=== PATIENT | male | born 1975 | race Hispanic/Latino ===

== ENCOUNTER 2018-06-05 14:39 | Emergency (ER) | payer BC ==
[2018-06-05] MEDS ORDERED: NA CHLORIDE 0.9% 1,000 ML ONE ×2 (15:12→16:12)
[2018-06-05 15:35] LABS: Absolute Lymphocytes (CBC) 1.7 K/uL (0.7-4.9); Absolute Monocytes 0.3 K/uL (0.1-1.3); Absolute Neutrophil 7.3 K/uL (1.8-8.0); Basophils % 0.3 % (0-1.3); Eosinophils % 0.7 % (0-4.4); Hematocrit 44.8 % (39.6-49.0); Lymphocytes % 18.4 % (15.3-44.8); MCH 28.5 pg (27.0-35.0); MCV 86.5 fL (80-100); MPV 10.9 fL (7.6-11.3); Monocytes % 2.7 % (3.3-12.3); RBC Red Blood Cell Count 5.18 M/uL (4.33-5.43)
[2018-06-05 15:56] LABS: Albumin 3.2 g/dL (3.4-5.0); Bilirubin Direct 0.1 mg/dL (0-0.2); Bilirubin Total 0.5 mg/dL (0.2-1.0); Magnesium 1.8 mg/dL (1.8-2.4); Potassium 4.1 mmol/L (3.5-5.1); Protein, Total 7.2 g/dL (6.4-8.2)
[2018-06-05] MEDS ORDERED: INSULIN -REGULAR HUMAN 50 UNIT/0.5 ML ML ONE ×2 (16:11→18:38)
[2018-06-05 18:37] LABS: Urine Blood NEGATIVE (NEG); Urine Glucose 3+ (NEG); Urine Protein TRACE (NEG); Urine Specific Gravity 1.015 (1.005-1.030); Urine pH 5.5 (5.0-7.0)
--- NOTE | 2018-06-05 19:33 | EDPHYS ---
Physician Documentation [facility] Name: Jasen Alegria Age: 42 yrs Sex: Male : 1975 Arrival Date: 06/05/2018 Time: 14:42 Bed 23 Private MD: ED Physician Arsh Avilez HPI: 06/05 15:04 This 42 yrs old Male presents to ER via Wheelchair with complaints of Heat Exposure. snw 15:04 pt had visual disturbance, weakness, near syncope while working in the heat, co-workers snw placed him in "the rig" and then he "needed some air" so went to get up and had to be assisted. Now pt returning to normal vision, normal strength, normal feeling. Onset: The symptoms/episode began/occurred suddenly, today. Severity of symptoms: At their worst the symptoms were incapacitating. The patient has not experienced similar symptoms in the past. It is unknown whether or not the patient has recently seen a physician. pt told in the past he was diabetic but takes no meds. Historical: - Allergies: 14:56 No Known Allergies; tw2 - Home Meds: 14:56 None [Active]; tw2 - PMHx: 14:56 Diabetes - NIDDM; tw2 - PSHx: 14:56 one testical removal; tw2 - Immunization history:: Adult Immunizations up to date. - Social history:: Smoking status: Patient/guardian denies using tobacco. - Ebola Screening: : Patient denies travel to an Ebola-affected area in the 21 days before illness onset. ROS: 15:01 ENT: Negative for injury, pain, and discharge, Neck: Negative for injury, pain, and snw swelling. 15:01 Cardiovascular: Negative for chest pain, palpitations, and edema, Respiratory: Negative for shortness of breath, cough, wheezing, and pleuritic chest pain, Abdomen/GI: Negative for abdominal pain, nausea, vomiting, diarrhea, and constipation, Back: Negative for injury and pain, : Negative for injury, bleeding, discharge, and swelling, MS/Extremity: Negative for injury and deformity. 15:01 Constitutional: Positive for body aches, fatigue, malaise. 15:01 Eyes: Positive for visual disturbance. 15:01 Skin: Positive for diaphoresis. 15:01 Neuro: Positive for dizziness, near syncope, visual changes, weakness. Exam: 15:01 Constitutional: This is a well developed, well nourished patient who is awake, alert, snw and in no acute distress. Head/Face: Normocephalic, atraumatic. Eyes: Pupils equal round and reactive to light, extra-ocular motions intact. Lids and lashes normal. Conjunctiva and sclera are non-icteric and not injected. Cornea within normal limits. Periorbital areas with no swelling, redness, or edema. ENT: Nares patent. No nasal discharge, no septal abnormalities noted. Tympanic membranes are normal and external auditory canals are clear. Oropharynx with no redness, swelling, or masses, exudates, or evidence of obstruction, uvula midline. Mucous membranes moist. Neck: Trachea midline, no thyromegaly or masses palpated, and no cervical lymphadenopathy. Supple, full range of motion without nuchal rigidity, or vertebral point tenderness. No Meningismus. Chest/axilla: Normal chest wall appearance and motion. Nontender with no deformity. No lesions are appreciated. 15:01 Respiratory: Lungs have equal breath sounds bilaterally, clear to auscultation and percussion. No rales, rhonchi or wheezes noted. No increased work of breathing, no retractions or nasal flaring. Abdomen/GI: Soft, non-tender, with normal bowel sounds. No distension or tympany. No guarding or rebound. No evidence of tenderness throughout. Back: No spinal tenderness. No costovertebral tenderness. Full range of motion. Skin: Warm, dry with normal turgor. Normal color with no rashes, no lesions, and no evidence of cellulitis. MS/ Extremity: Pulses equal, no cyanosis. Neurovascular intact. Full, normal range of motion. Neuro: Awake and alert, GCS 15, oriented to person, place, time, and situation. Cranial nerves II-XII grossly intact. Motor strength 5/5 in all extremities. Sensory grossly intact. Cerebellar exam normal. Normal gait. 15:01 Cardiovascular: Rate: tachycardic, Rhythm: regular, Heart sounds: normal, JVD: is not appreciated. Vital Signs: 14:47 BP 138 / 89; Pulse 113; Resp 13; Temp 99.0(O); Pulse Ox 95% on R/A; tw2 14:54 Weight 136.08 kg (R); Height 5 ft. 5 in. (165.10 cm); Pain 0/10; tw2 15:38 BP 138 / 89; Pulse 110; Resp 17; Pulse Ox 95% on 2 lpm NC; tw2 16:22 BP 147 / 89; Pulse 107; Resp 19; Pulse Ox 98% on 2 lpm NC; tw2 17:12 BP 149 / 87; Pulse 116; Resp 19; Pulse Ox 96% on R/A; tw2 18:00 BP 137 / 74; Pulse 113; Resp 17; Pulse Ox 95% on R/A; tw2 19:15 BP 118 / 94; Pulse 103; Resp 17; Pulse Ox 96% on R/A; tw2 19:40 BP 121 / 65; Pulse 99; Resp 20; Pulse Ox 96% on R/A; Pain 0/10; lp1 14:54 Body Mass Index 49.92 (136.08 kg, 165.10 cm) tw2 MDM: 14:48 Patient medically screened. snw 19:33 Data reviewed: vital signs, nurses notes. Data interpreted: Pulse oximetry: on room air snw is 96 %. Interpretation: acceptable. Counseling: I had a detailed discussion with the patient and/or guardian regarding: the historical points, exam findings, and any diagnostic results supporting the discharge/admit diagnosis, the presence of at least one elevated blood pressure reading (>120/80) during this emergency department visit, lab results, the need for outpatient follow up, to return to the emergency department if symptoms worsen or persist or if there are any questions or concerns that arise at home. Special discussion: Based on the history and exam findings, there is no indication for further emergent testing or inpatient evaluation. I discussed with the patient/guardian the need to see the primary care provider for further evaluation of the symptoms. 06/05 15:01 Order name: Basic Metabolic Panel; Complete Time: 15:59 snw 06/05 15:01 Order name: CBC with Diff; Complete Time: 15:49 snw 06/05 15:01 Order name: CPK; Complete Time: 15:59 snw 06/05 15:01 Order name: LFT's; Complete Time: 15:59 snw 06/05 15:01 Order name: Magnesium; Complete Time: 15:59 snw 06/05 15:01 Order name: Troponin (emerg Dept Use Only); Complete Time: 15:59 snw 06/05 16:14 Order name: Glucose, Ancillary Testing; Complete Time: 16:22 EDMS 06/05 16:43 Order name: Glucose, Ancillary Testing; Complete Time: 17:01 EDMS 06/05 17:31 Order name: Urine Dipstick--Ancillary (enter results); Complete Time: 18:40 eb 06/05 18:43 Order name: Glucose, Ancillary Testing; Complete Time: 18:51 EDMS 06/05 15:01 Order name: EKG; Complete Time: 15:01 snw 06/05 15:01 Order name: Cardiac monitoring; Complete Time: 15:02 snw 06/05 15:01 Order name: EKG - Nurse/Tech; Complete Time: 15:02 snw 06/05 15:01 Order name: IV Saline Lock; Complete Time: 15:02 snw 06/05 15:01 Order name: Labs collected and sent; Complete Time: 15:19 snw 06/05 15:01 Order name: O2 Per Protocol; Complete Time: 15:02 snw 06/05 15:01 Order name: O2 Sat Monitoring; Complete Time: 15:02 snw 06/05 15:01 Order name: Urine Dipstick-Ancillary (obtain specimen); Complete Time: 16:22 snw 06/05 18:16 Order name: VS Recheck; Complete Time: 18:17 snw Administered Medications: 15:23 Drug: NS 0.9% 1000 ml Route: IV; Rate: 1 bolus; Site: right antecubital; mg2 16:10 Drug: Insulin Regular Human 5 units {Co-Signature: mg2 (David Rich RN).} Route: tw2 IVP; Site: right antecubital; 16:42 Follow up: Response: No adverse reaction; Blood sugar is lowered tw2 16:11 Drug: NS 0.9% 1000 ml Route: IV; Rate: 1 bolus; Site: right antecubital; tw2 18:00 Follow up: Response: No adverse reaction; IV Status: Completed infusion; IV Intake: tw2 1000ml 18:35 Drug: Insulin Regular Human 5 units {Co-Signature: mg2 (David Rich RN).} Route: tw2 Sub-Q; Site: right upper arm; 19:15 Follow up: Response: No adverse reaction; Blood sugar is lowered tw2 Point of Care Testing: Blood Glucose: 16:42 Blood Glucose: 398 mg/dL; tw2 18:19 Blood Glucose: 367 mg/dL; tw2 19:07 Blood Glucose: 330 mg/dL; jp3 16:42 provider notified. tw2 Ranges: Critical Glucose Levels:Adult <50 mg/dl or >400 mg/dl <40 mg/dl or >180 mg/dl Disposition: 06/06 06:50 Co-signature as Attending Physician, Arsh Avilez MD I agree with the assessment and marta plan of care. Disposition: 06/05/18 19:32 Discharged to Home. Impression: Hyperglycemia, unspecified, Dehydration, Heat syncope. - Condition is Stable. - Discharge Instructions: Dehydration, Adult, Diabetes and Sick Day Management, Hyperglycemia, Blood Glucose Monitoring, Adult, Heat Exhaustion Information, Rehydration, Adult. - Medication Reconciliation Form, Thank You Letter, Antibiotic Education, Prescription Opioid Use, Work release form form. - Follow up: Private Physician; When: 1 - 2 days; Reason: Recheck today's complaints, Continuance of care, Re-evaluation by your physician. Follow up: Emergency Department; When: As needed; Reason: Worsening of condition. Signatures: Dispatcher [employer] Arsh Morales MD MD cha Therrien, Shelly, GRAVITY PROSPECTING OPERATOR HELPER-C GRAVITY PROSPECTING OPERATOR HELPER-Csnw Carolyn Macario, RN RN lp1 Mona Lucero RN RN tw2 David Rich RN RN mg2 David Rich RN mg2 Corrections: (The following items were deleted from the chart) 06/05 19:53 19:32 06/05/2018 19:32 Discharged to Home. Impression: Hyperglycemia, unspecified; lp1 Dehydration; Heat syncope. Condition is Stable. Discharge Instructions: Dehydration, Adult, Diabetes and Sick Day Management, Hyperglycemia, Blood Glucose Monitoring, Adult, Heat Exhaustion Information, Rehydration, Adult. Forms are Work release form, Medication Reconciliation Form, Thank You Letter, Antibiotic Education, Prescription Opioid Use. Follow up: Private Physician; When: 1 - 2 days; Reason: Recheck today's complaints, Continuance of care, Re-evaluation by your physician. Follow up: Emergency Department; When: As needed; Reason: Worsening of condition. snw
--- NOTE | 2018-06-05 19:33 | ER ---
Nurse's Notes [facility] Name: Jasen Alegria Age: 42 yrs Sex: Male : 1975 Arrival Date: 06/05/2018 Time: 14:42 Bed 23 Private MD: Diagnosis: Hyperglycemia, unspecified;Dehydration;Heat syncope Presentation: 06/05 14:48 Presenting complaint: Patient states: at work, he was going up steps and felt light tw2 headed and then passed out, for a few seconds, coworkers got him to his truck in the . Transition of care: patient was not received from another setting of care. Onset of symptoms was June 05, 2018. Risk Assessment: Do you want to hurt yourself or someone else? Patient reports no desire to harm self or others. Initial Sepsis Screen: Does the patient meet any 2 criteria? No. Patient's initial sepsis screen is negative. Does the patient have a suspected source of infection? No. Patient's initial sepsis screen is negative. Care prior to arrival: None. 14:48 Method Of Arrival: Wheelchair tw2 14:48 Acuity: MARCEL 3 tw2 Historical: - Allergies: 14:56 No Known Allergies; tw2 - Home Meds: 14:56 None [Active]; tw2 - PMHx: 14:56 Diabetes - NIDDM; tw2 - PSHx: 14:56 one testical removal; tw2 - Immunization history:: Adult Immunizations up to date. - Social history:: Smoking status: Patient/guardian denies using tobacco. - Ebola Screening: : Patient denies travel to an Ebola-affected area in the 21 days before illness onset. Screenin:56 Abuse screen: Denies threats or abuse. Nutritional screening: No deficits noted. tw2 Tuberculosis screening: No symptoms or risk factors identified. Fall Risk None identified. Assessment: 14:45 General: Appears in no apparent distress. obese, Behavior is calm, cooperative, tw2 appropriate for age. Pain: Denies pain. Neuro: Level of Consciousness is awake, alert, obeys commands, Oriented to person, place, time, situation. Cardiovascular: Denies chest pain, shortness of breath, Heart tones S1 S2 Patient's skin is warm and dry. Respiratory: Airway is patent Respiratory effort is even, unlabored, Respiratory pattern is regular, symmetrical, Breath sounds are clear bilaterally. GI: Abdomen is round non-distended, obese, Bowel sounds present X 4 quads. : No signs and/or symptoms were reported regarding the genitourinary system. EENT: No signs and/or symptoms were reported regarding the EENT system. Derm: Skin is intact, is healthy with good turgor, Skin is dry, Skin temperature is warm. Musculoskeletal: Range of motion:. 15:38 Reassessment: Patient appears in no apparent distress at this time. No changes from tw2 previously documented assessment. Patient and/or family updated on plan of care and expected duration. Pain level reassessed. Patient is alert, oriented x 3, equal unlabored respirations, skin warm/dry/pink. 16:23 Reassessment: Patient appears in no apparent distress at this time. No changes from tw2 previously documented assessment. Patient and/or family updated on plan of care and expected duration. Pain level reassessed. Patient is alert, oriented x 3, equal unlabored respirations, skin warm/dry/pink. 17:12 Reassessment: Patient appears in no apparent distress at this time. No changes from tw2 previously documented assessment. Patient and/or family updated on plan of care and expected duration. Pain level reassessed. Patient is alert, oriented x 3, equal unlabored respirations, skin warm/dry/pink. 18:01 Reassessment: Patient appears in no apparent distress at this time. No changes from tw2 previously documented assessment. Patient and/or family updated on plan of care and expected duration. Pain level reassessed. Patient is alert, oriented x 3, equal unlabored respirations, skin warm/dry/pink. 19:15 Reassessment: Patient states "I feel better, I just feel really exhausted"; Patient lp1 denies any dizziness Patient states feeling better. Patient states symptoms have improved. 19:30 Reassessment: Ambulated with patient, steady gait noted, denies any dizziness. lp1 Vital Signs: 14:47 BP 138 / 89; Pulse 113; Resp 13; Temp 99.0(O); Pulse Ox 95% on R/A; tw2 14:54 Weight 136.08 kg (R); Height 5 ft. 5 in. (165.10 cm); Pain 0/10; tw2 15:38 BP 138 / 89; Pulse 110; Resp 17; Pulse Ox 95% on 2 lpm NC; tw2 16:22 BP 147 / 89; Pulse 107; Resp 19; Pulse Ox 98% on 2 lpm NC; tw2 17:12 BP 149 / 87; Pulse 116; Resp 19; Pulse Ox 96% on R/A; tw2 18:00 BP 137 / 74; Pulse 113; Resp 17; Pulse Ox 95% on R/A; tw2 19:15 BP 118 / 94; Pulse 103; Resp 17; Pulse Ox 96% on R/A; tw2 19:40 BP 121 / 65; Pulse 99; Resp 20; Pulse Ox 96% on R/A; Pain 0/10; lp1 14:54 Body Mass Index 49.92 (136.08 kg, 165.10 cm) tw2 ED Course: 14:42 Patient arrived in ED. tw2 14:47 Arm band placed on. tw2 14:48 Li Katz FNP-C is PHCP. snw 14:48 Arsh Avilez MD is Attending Physician. snw 14:48 Placed in gown. Bed in low position. Call light in reach. Side rails up X 1. Cardiac tw2 monitor on. Pulse ox on. NIBP on. 14:52 Triage completed. tw2 14:54 Mona Lucero RN is Primary Nurse. tw2 15:00 Missed attempt(s): 22 gauge in right forearm. jp3 15:24 Inserted saline lock: 20 gauge in right antecubital area, using aseptic technique. mg2 Blood collected. by chip bin conveyor tender Travon. 15:25 Pillow given. jp3 15:26 Initial lab(s) drawn, by nd, sent to lab. jp3 15:28 EKG done, by cardiology tech. reviewed by Arsh Avilez MD. sm3 16:54 Assisted to bathroom. jp3 19:00 Report given to JHOAN Leon. tw2 19:52 No provider procedures requiring assistance completed. IV discontinued, No lp1 redness/swelling at site. Pressure dressing applied. Administered Medications: 15:23 Drug: NS 0.9% 1000 ml Route: IV; Rate: 1 bolus; Site: right antecubital; mg2 16:10 Drug: Insulin Regular Human 5 units {Co-Signature: mg2 (David Rich RN).} Route: tw2 IVP; Site: right antecubital; 16:42 Follow up: Response: No adverse reaction; Blood sugar is lowered tw2 16:11 Drug: NS 0.9% 1000 ml Route: IV; Rate: 1 bolus; Site: right antecubital; tw2 18:00 Follow up: Response: No adverse reaction; IV Status: Completed infusion; IV Intake: tw2 1000ml 18:35 Drug: Insulin Regular Human 5 units {Co-Signature: mg2 (David Rich RN).} Route: tw2 Sub-Q; Site: right upper arm; 19:15 Follow up: Response: No adverse reaction; Blood sugar is lowered tw2 Point of Care Testing: Blood Glucose: 16:42 Blood Glucose: 398 mg/dL; tw2 18:19 Blood Glucose: 367 mg/dL; tw2 19:07 Blood Glucose: 330 mg/dL; jp3 16:42 provider notified. tw2 Ranges: Intake: 18:00 IV: 1000ml; Total: 1000ml. tw2 Outcome: 19:32 Discharge ordered by . snw 19:52 Discharged to home ambulatory. lp1 19:52 Condition: good 19:52 Discharge instructions given to patient, Instructed on discharge instructions, follow up and referral plans. Demonstrated understanding of instructions, follow-up care. 19:53 Patient left the ED. lp1 Signatures: Li Katz, AUTO WASHER-C AUTO WASHER-Csnw Carolyn Macario RN RN lp1 Mona Lucero RN RN tw2 David Rich RN RN mg2 Janice Wu 3 Heri Zhao 3 David Rich RN mg2
--- NOTE | 2018-06-05 21:52 | EKG ---
Test Date: 2018-06-05 Test Time: 15:15:06 Health Care Recruiter: JERRY MEASUREMENT RESULTS: Intervals: Rate: 106 TN: 146 QRSD: 154 QT: 398 QTc: 528 Josephine: P: 48 TN: 146 QRS: 119 T: 13 INTERPRETIVE STATEMENTS: Sinus tachycardia Right bundle branch block ST abnormality, non specifict Abnormal ECG No previous ECG available for comparison Electronically Signed On 06-05-18 21:51:46 CDT by Vikas Morales
== END 2018-06-05 19:53 | disposition home or self-care (01) ==
LOC: ER 14:39
DX: E86.0 Dehydration (principal); E11.65 Type 2 diabetes mellitus with hyperglycemia; T67.1XXA Heat syncope, initial encounter; X58.XXXA Exposure to other specified factors, initial encounter; Y93.89 Activity, other specified; Y92.89 Other specified places as the place of occurrence of the external cause; Y99.8 Other external cause status
CPT/HCPCS: 36415; 80048; 80076; 81003; 82550; 82962; 83735; 84484; 85025; 93005; 96361; 96372; 96374; 99284; J7030